=== PATIENT | male | born 1975 | race Caucasian/White ===

== ENCOUNTER → 2017-01-07 | Outpatient (CLI) | payer OTHER ==
[2017-01-07 16:31] VITALS: BP 171/92; PULSE 72; RESP 16; TEMP 97.5; BMI 48.1
[2017-01-07 17:29] LABS: EKG EKG PERFORMED
[2017-01-07 18:07] LABS: ALT 45 U/L (21-72); AST 33 U/L (17-59); Alkaline Phosphatase 68 U/L (38-126); Anion Gap 11 mmol/L; Blood Urea Nitrogen 19 mg/dL (9-20); Calcium 9.5 mg/dL (8.4-10.2); Carbon Dioxide 31 mmol/L (22-30); Chloride 97 mmol/L (98-107); Cholesterol 136 mg/dL (<200); Glucose 232 mg/dL (74-99); HDL Cholesterol 27 mg/dL (40-60); Non-African American GFR(MDRD) >60 (>60 ml/min/1.73 sqM); Potassium 4.3 mmol/L (3.5-5.1); Sodium 139 mmol/L (137-145); Total Bilirubin 0.7 mg/dL (0.2-1.3); Total Protein 7.3 g/dL (6.3-8.2)
[2017-01-07 18:15] LABS: Triglycerides 517 mg/dL (<150)
[2017-01-07 18:19] LABS: CHCM 34.2; HCT 37.9 % (39.0-53.0); HDW 3.65; HGB 12.9 gm/dL (13.0-17.5); MCH 26.8 pg (25.0-35.0); MCHC 33.9 g/dL (31.0-37.0); Mean Platelet Volume 6.8; Poikilocytosis Slight; RDW 15.3 % (11.5-15.5); WBC 5.9 k/uL (3.8-10.6)
[2017-01-07 18:22] LABS: Iron 84 ug/dL (49-181)
[2017-01-07 18:32] LABS: Total Iron Binding Capacity 371 ug/dL (261-462)
[2017-01-07 19:31] LABS: Vitamin B12 643 pg/mL (239-931)
[2017-01-07 22:18] LABS: Hemoglobin A1C 7.8 % (4.2-6.1)
--- NOTE | 2017-01-11 18:14 | P.PN ---
Progress Note - Text DATE OF CONSULTATION: 01/07/2017. CHIEF COMPLAINT: Initial bariatric assessment. HISTORY OF PRESENT ILLNESS: Jimbo Garcia is a 41-year-old gentleman who comes in at 6 foot 1 inch. His ideal body weight is 188 pounds. Today he comes in weighing 364 pounds. His highest weight was 369 pound. He has been undergoing medical supervised weight loss for over 6 to 7 months with minimal improvement of his weight. As a result of his weight he has developed insulin-dependent diabetes as well as obstructive sleep apnea, fatty liver disease as well as hypercholesterolemia. He also has fatty food intolerance and a strong family history of gallbladder disease. His current body mass index is 48.2. Now he presents for surgical intervention and options. PAST MEDICAL HISTORY: 1. Obstructive sleep apnea. 2. Morbid obesity. 3. Gastroesophageal reflux disease. 4. Insulin-dependent diabetes. 5. Hypertensive heart disease. PAST SURGICAL HISTORY: 1. Upper endoscopy. 2. Colonoscopy with polypectomy. 3. Sleep study. 4. Removal of bone spur of the right foot. MEDICATIONS: 1. Zantac. 2. Lantus. 3. Coreg. 4. Insulin Lispro. ALLERGIES: Denies. SOCIAL HISTORY: Former tobacco user. He is . No recent alcohol use. FAMILY HISTORY: Pertinent for diabetes including morbid obesity. REVIEW OF SYSTEMS: CONSTITUTIONAL: [place] body weight for a 6-foot, 1-frame of 188 pounds. Highest weight of 369 pounds. Highest present body mass index of 48.8. Recent weight loss of approximately 3 pounds. Medical supervised weight loss ongoing for at least 6 months. HEENT: No troubles with vision or hearing. He does wears glasses. No reports of dysphagia. ENDOCRINE: History of insulin-dependent diabetes. He has intolerance to metformin with diarrhea. Denies any thyroid disorder. CARDIOVASCULAR: Has hypertensive heart disease. No reports of recent chest pain or heart attack. RESPIRATORY: Has obstructive sleep apnea and has a CPAP machine. Denies any recent dyspnea on exertion. GASTROINTESTINAL: Gastroesophageal reflux disease including fatty food intolerance. He has a personal history of multiple tubular adenomas of the colon. Recent colonoscopy performed within the last six to twelve months. MUSCULOSKELETAL: Has diffuse osteoarthritis, especially of the bilateral knees and hips. NEUROLOGICAL: No reports of stroke or seizure disorders. PSYCH: No reports of depression or suicidal ideation. HEMATOLOGIC: Denies any previous DVTs or easy bruising or bleeding. PHYSICAL EXAM: VITAL SIGNS: 97.5, 72, 16, 171/92, 6 foot 1, 364 pounds. Body mass is a 48.2. GENERAL: Well-developed pleasant male in no acute distress. HEENT: No scleral icterus. Extraocular movements grossly intact. Moist buccal mucosa. Neck is supple without lymphadenopathy. CHEST: Nonlabored respirations. Equal bilateral excursions. CARDIOVASCULAR: Regular rate and rhythm. 2+ bilateral peripheral pulses. ABDOMEN: Soft, nondistended, tender along right upper quadrant. MUSCULOSKELETAL: No clubbing, cyanosis, or edema. NEURO: No focal or lateralizing signs. Cranial nerves II through XII grossly within normal limits. PSYCH: Appropriate affect. Alert and oriented to person, place, and time. LABS: White blood cell count normal at 5.9. Hemoglobin is low at 12.9. Hematocrit is also low at 37.9. MCV low at 79.0. Chloride was low at 97. Carbon dioxide was elevated at 31. Glucose elevated at 232. Hemoglobin A1c was elevated at 7.8. Liver enzymes were within normal limits. Triglycerides elevated at 517. Cholesterol was low at 136. HDL is low at 27. Thiamine is normal at 57. B12 normal at 643. Vitamin D is low at 8.1. Thyroid-stimulating hormone was within normal limits. EKG was obtained. ASSESSMENT: 1. Morbid obesity due to excess calories. 2. Body mass index of 48.2. 3. Obstructive sleep apnea. 4. Insulin-dependent diabetes type 2. 5. History of gallbladder disorder. 6. Family history of gallbladder disease. 7. History of anemia. 8. Personal history of colon polyps. 9. Hypertriglyceridemia. 10. Dyslipidemia. 11. Vitamin D deficiency. 12. Osteoarthritis of the bilateral hips primary secondary to obesity. 13. Osteoarthritis of the bilateral knees secondary to morbid obesity. PLAN: 1. At present he is mostly concerned about his gallbladder for which he is chronically nauseated. He has strong family history of gallbladder disease. Alternatives to a laparoscopic cholecystectomy with possible open technique was described and reviewed. 2. Recommend treatment of his vitamin D deficiency which is severe. 3. He has hypertriglyceridemia to be managed by his primary care provider. 4. Surgical options for bariatric procedures were reviewed, including between the band, sleeve and Candie-en-Y gastric bypass. With his history of active diabetes, he is looking into gastrectomy-type procedures. 5. He also has a personal history of gastroesophageal reflux disease as well as hiatal hernia which may need to be addressed at the time of this procedure. 6. Pending the results of his EKG, he may need additional cardiac risk assessment. 7. Recommend psych assessment per bariatric protocol. 8. With his history of previous tobacco use, will need a urine nicotine test. 9. Recommend continued medically supervised weight loss, particularly with high protein, low caloric diet, which will also benefit his diabetes. 10. Recommend close observation and management in the interim. Thank you for this kind consultation.
[2017-01-12 17:05] LABS: Anabasine Urine <2.0 ng/mL (<2.0)
== END | disposition home or self-care (01) ==
LOC: BARWHC3 14:27
PROVIDERS: ATTEND Surgery Plastic and Reconstructive Surgery
DX: Z01.818 Encounter for other preprocedural examination (principal); E66.01 Morbid (severe) obesity due to excess calories; Z68.42 Body mass index [BMI] 45.0-49.9, adult; E11.9 Type 2 diabetes mellitus without complications; Z79.4 Long term (current) use of insulin; E89.1 Postprocedural hypoinsulinemia; D50.8 Other iron deficiency anemias; E44.0 Moderate protein-calorie malnutrition; E55.9 Vitamin D deficiency, unspecified; Z79.899 Other long term (current) drug therapy; Z72.0 Tobacco use; G47.33 Obstructive sleep apnea (adult) (pediatric); E78.1 Pure hyperglyceridemia; E78.2 Mixed hyperlipidemia; M16.0 Bilateral primary osteoarthritis of hip; M17.0 Bilateral primary osteoarthritis of knee; I11.9 Hypertensive heart disease without heart failure
CPT/HCPCS: 84425; 80061; 80053; 82607; 82728; 83036; 82746; 83540; 83550; 84443; 85027; 82306; 93005; G0480; G0463; 80323; 99211

== ENCOUNTER 2017-02-02 06:25 | Day surgery (SDC) | payer OTHER ==
[2017-01-28 13:14] VITALS: BMI 47.5
[~2017-02-02 06:25] MED LIST: DEXAMETHASONE SOD PHOSPHATE 10 MG/ML 1 ML VIAL IV ONE; MIDAZOLAM 2 MG/2 ML VIAL IV PRN; ONDANSETRON 4 MG/2 ML VIAL IVP ONE; SCOPOLAMINE 1.5MG/72HR PATCH TRANSDERM ONE; ceFAZolin 3 GM in SODIUM CHLORIDE 0.9% 100 ML IVPB ONE
[2017-02-02] MEDS ORDERED: ACETAMINOPHEN IV (For NPO) 1,000 MG in EMPTY BAG 1 BAG IVPB STA (06:33)
[2017-02-02] MEDS ORDERED: HEPARIN SODIUM,PORCINE 5,000 UNIT/ML 1 ML VIAL SQ ONE (06:33)
--- NOTE | 2017-02-02 06:46 | P.GSHP ---
History of Present Illness H&P Date: 02/02/17 CHIEF COMPLAINT: Cholecystitis HISTORY OF PRESENT ILLNESS: The patient is a 41-year-old male who presents with history of epigastric including right upper quadrant abdominal pain. He underwent diagnostic studies for his gallbladder. Separately his clinical picture is consistent with cholecystitis. Now he presents for surgical intervention. PAST MEDICAL HISTORY: Please see list PAST SURGICAL HISTORY: Please see list MEDICATIONS: Please see list ALLERGIES: Denies. SOCIAL HISTORY: No illicit drug use or recent tobacco use FAMILY HISTORY: Pertinent for gallbladder disease REVIEW OF ORGAN SYSTEMS: GI: Findings are consistent with gastroesophageal reflux disease including diverticulosis and hyperplastic polyps. Has gastroesophageal reflux disease. CONSTITUTIONAL: No fevers or chills. HEENT: Denies any trouble with vision, hearing or nosebleeds. No difficulty swallowing. LYMPHATIC: The patient denies any lumps and bumps around the neck. ENDOCRINE: Denies any thyroid disorders. Has blood sugar glucose intolerance. RESPIRATORY: Denies pneumonia. Denies any troubles with breathing or dyspnea on exertion. Has sleep apnea. CARDIOVASCULAR: Denies any chest pain, palpitations, or recent heart attacks. GENITOURINARY: Denies any blood in urine or increased urinary frequency. MUSCULOSKELETAL: Has back pain, stiffness or joint arthritis. Has gout. NEUROLOGIC: Denies any numbness or tingling along the distal extremities. No seizure disorders or headaches. PSYCHIATRIC: Denies any depression or suicidal ideation. HEMATOLOGIC: Denies any abnormal bleeding or bruising. PHYSICAL EXAM: VITAL SIGNS: Afebrile vital signs stable GENERAL: Well-developed pleasant male in no acute distress. HEENT: No scleral icterus. Extraocular movements grossly intact. Moist buccal mucosa. NECK: Supple without lymphadenopathy. CHEST: Unlabored respirations. Equal bilateral excursions. CARDIOVASCULAR: Regular rate regular rhythm rhythm. Distal 2+ pulses. ABDOMEN: Soft, nondistended. Tender along the epigastrium and right upper quadrant. MUSCULOSKELETAL: No clubbing, cyanosis, or edema. NEURO :Moves all extremities 4+/5. PSYCH: Alert and oriented to person, place and time. ASSESSMENT: 1. Epigastric and right upper quadrant abdominal pain 2. Chronic cholecystitis PLAN: 1. Will need a robotic assisted laparoscopic cholecystectomy possible open. Benefits and risks were described. 2. Heparin for DVT prophylaxis 5000 units. 3. Antibiotic prophylaxis. Past Medical History Past Medical History: Diabetes Mellitus, Hyperlipidemia, Hypertension, Sleep Apnea/CPAP/BIPAP History of Any Multi-Drug Resistant Organisms: None Reported Past Surgical History: Orthopedic Surgery Additional Past Surgical History / Comment(s): great toe BONE, RT FOOT removed due to infection. COLONOSCOPY. EGD Past Anesthesia/Blood Transfusion Reactions: No Reported Reaction Past Psychological History: No Psychological Hx Reported Smoking Status: Former smoker Past Alcohol Use History: None Reported Additional Past Alcohol Use History / Comment(s): QUIT SMOKING 2006 Past Drug Use History: None Reported - Past Family History Mother Family Medical History: Cancer Father Family Medical History: Cancer Medications and Allergies Home Medications Medication Instructions Recorded Confirmed Type Insulin Glargine [Lantus] 100 unit SQ HS 01/07/17 01/28/17 History Carvedilol [Coreg] 25 mg PO BID 01/28/17 01/28/17 History Gemfibrozil [Lopid] 600 mg PO AC-BID 01/28/17 01/28/17 History Insulin Regular [HumuLIN R] 18 units SQ TID 01/28/17 01/28/17 History Ranitidine HCl [Zantac] 150 mg PO HS 02/02/17 02/02/17 History Allergies Allergy/AdvReac Type Severity Reaction Status Date / Time No Known Allergies Allergy Verified 02/02/17 06:40 Surgical - Exam Vital Signs Temp Pulse Resp BP Pulse Ox 97.5 F L 75 18 155/76 97 02/02/17 06:35 02/02/17 06:35 02/02/17 06:35 02/02/17 06:35 02/02/17 06:35
[2017-02-02 06:55] LABS: Glucose,Whole Blood 188 mg/dL (75-99)
[2017-02-02] MEDS: LACTATED RINGERS 1,000 ML IV SCH ×2 (07:00→07:26)
[2017-02-02] MEDS: LIDOCAINE 1% 20 ML VIAL (10MG/ML) FOR IV START INTRADERMA PRN ×2 (07:01→07:26)
[2017-02-02] MEDS ORDERED: GLYCOPYRROLATE 0.2 MG/ML 2 ML VIAL ONE (07:34)
[2017-02-02] MEDS ORDERED: MIDAZOLAM 2 MG/2 ML VIAL ONE (07:34)
[2017-02-02] MEDS ORDERED: PROPOFOL 10 MG/ML 20 ML VIAL IV ONE (07:34)
[2017-02-02] MEDS ORDERED: ROCURONIUM BROMIDE 10 MG/ML 10 ML VIAL IV ONE (07:34)
[2017-02-02] MEDS ORDERED: NEOSTIGMINE 1 MG/ML 10 ML VIAL ONE (07:34)
[2017-02-02] MEDS ORDERED: fentaNYL (PF) 50 MCG/ML 2 ML AMP ONE (07:34)
[2017-02-02] MEDS ORDERED: LIDOCAINE 1% INJ 10MG/ML (20 ML MDV) ONE (07:34)
[2017-02-02] MEDS ORDERED: SUCCINYLCHOLINE CHLORIDE VIAL 200 MG/10 ML VIAL IV ONE (07:34)
[2017-02-02] MEDS ORDERED: LABETALOL 5 MG/ML VIAL MDV ONE (07:34)
[2017-02-02] MEDS ORDERED: BUPIVACAIN-EPI 0.25%-1:200,000 30 ML VIAL SQ ONE ×2 (08:07)
--- NOTE | 2017-02-02 09:43 | P.PCN ---
Preoperative Diagnosis: Chronic cholecystitis Postoperative Diagnosis: Same Procedure(s) Performed: Robotic-assisted laparoscopic cholecystectomy, multiport Anesthesia: GETA, local Surgeon: Cydney Barfield Estimated Blood Loss (ml): 10 Pathology: other (Gallbladder) Condition: stable Disposition: same day Operative Findings: Omental adhesions about the entire gallbladder consistent with chronic cholecystitis, hepatomegaly, fatty liver disease adding complexity of case by 30 minutes Description of Procedure: See full dictated report
[2017-02-02 10:05] VITALS: TEMP 97
[2017-02-02] MEDS: HYDROmorphone 1 MG/ML 1 ML SYRINGE IVP PRN ×2 (10:25→10:40)
[2017-02-02] MEDS ORDERED: HYDROcodone/APAP 5-325MG 1 EACH TAB PO PRN (10:27)
[2017-02-02] MEDS ORDERED: NALOXONE 0.4 MG/ML 1 ML VIAL IV PRN (10:27)
[2017-02-02] MEDS ORDERED: ONDANSETRON 4 MG/2 ML VIAL IVP PRN (10:27)
[2017-02-02 11:02] VITALS: RESP 18
[2017-02-02 11:05] LABS: Glucose,Whole Blood 276 mg/dL (75-99)
[2017-02-02] MEDS ORDERED: INSULIN LISPRO (humaLOG) 300 UNIT/3 ML VIAL SQ ONE (11:06)
[2017-02-02] MEDS ORDERED: ONDANSETRON 4 MG/2 ML VIAL IVP ONE (11:22)
[2017-02-02] MEDS ORDERED: HYDROcodone/APAP 5-325MG 1 EACH TAB PO ONE (12:05)
[2017-02-02 13:35] VITALS: BP 138/92; PULSE 78
--- NOTE | 2017-02-23 12:10 | P.OP ---
Date of Procedure: 02/02/17 Description of Procedure: SURGEON: DAVID BARFIELD MD BIOCHEMISTRY TECHNOLOGIST: Shama Maharaj PREOPERATIVE DIAGNOSES: 1. Chronic cholecystitis. 2. Family history of gallbladder disease. 3. Morbid obesity due to excess calories. 4. Body mass index 29.4. 5. Insulin-dependent type 2 diabetes, uncontrolled. 6. Hypertensive heart disease. 7. Hypercholesterolemia. 8. Hypertriglyceridemia. 9. Obstructive sleep apnea. POSTOPERATIVE DIAGNOSES: 1. Chronic cholecystitis. 2. Family history of gallbladder disease. 3. Morbid obesity due to excess calories. 4. Body mass index 29.4. 5. Insulin-dependent type 2 diabetes, uncontrolled. 6. Hypertensive heart disease. 7. Hypercholesterolemia. 8. Hypertriglyceridemia. 9. Obstructive sleep apnea. 10. Fatty liver disease. 11. Hepato-megaly. OPERATION: Robotic-assisted laparoscopic cholecystectomy, multiport ESTIMATED BLOOD LOSS: 10 mL. SPECIMENS REMOVED: Gallbladder. COMPLICATIONS: None. OPERATIVE FINDINGS: 1. Omental adhesions about the entire gallbladder consistent with chronic cholecystitis 2. Hepatomegaly from fatty liver disease adding complexity to the case by 30 minutes INDICATIONS: The patient is a 42-year-old male who presents with chronic cholelcystitis. Surgical intervention with a laparoscopic cholecystectomy was described at length including injury to the biliary tree, bleeding, infection, need for further surgery. Informed consent was obtained. Robotic assisted laparoscopic approach was selected with his risks for hepatomegaly secondary to fatty liver disease including morbid obesity. Benefits and risks of the procedure including but not limited to bleeding, infection, injury to the biliary tree, injury to small bowel including placement of mesh repair was described. Informed consent was obtained. DESCRIPTION OF PROCEDURE: Patient was brought to the operating room, placed in supine position. After general induction, the abdomen had been prepped and draped in standard sterile fashion. The robotic da Gio SI system was primed. After a timeout protocol was performed, the patient had been prepped and draped in standard sterile fashion and placement. The robot was docked along the right lateral abdomen. The patient was repositioned in Trendelenburg position. Please note prior to docking of the robot; however, a 5 mm 0 degrees laparoscopic trocar entry was performed along the epigastrium. Next, 8 mm robotic port was placed along the right upper abdomen. A separate 8 mm port was placed along the left lateral abdomen. The camera port was maintained along the epigastrium upper quadrant. Another 8 mm port was placed along the right lateral abdominal wall. Please note that the ports were placed at least 10 to 15 cm away from the target anatomy of the lower pelvis. An logging assistant 5-mm port was placed along the left upper lateral abdominal wall. Using a grasper for arm 3, a long dissecting grasper for arm 2, including a grasper with cautery for arm 1, the robotic system was appropriately docked and primed as described. Instruments were interchanged by the logging assistant including hook cautery, Bovie cautery scissors and clip appliers. I had sat at the console. Adhesions were identified along the infundibulum of the gallbladder. A robot LigaSure was used to divide the adhesions. The gallbladder fundus was retracted over the dome of the liver. Initial attention was brought to the infundibulum which was gently retracted in the inferior lateral approach. Using a long grasper, the cystic duct including the cystic artery was carefully skeletonized. Using a clip aviation program manager 2 clips were placed proximally, and 2 clip was placed distally along the cystic duct and then cut with scissors. Again care was taken to avoid any injury to the biliary tree as the common bile duct was clearly visualized during this portion of dissection. Next, the cystic artery was clipped twice proximally, once distally and then cauterized the cut. Electro-Bovie cautery was used to remove the gallbladder from the hepatic fossa without decompression of the gallbladder. Hemostasis was checked and found to be adequate. I re-scrubbed into the case. Using a 10 mm Endo Catch bag via the 12 mm port, the specimen was removed from the abdominal cavity. The 12 mm port site was oversewn using 0 Vicryl including a Mu Romo as well. All pneumoperitoneum instruments were evacuated from the abdominal cavity. The incisions were reapproximated using 4-0 Monocryl in an interrupted subcuticular fashion. Please note along the trocar sites, local anesthetic was placed as a field block prior to insertion of all instruments. Dermabond was applied to the skin. At the end of the procedure needle, sponge, and instrument count had been verified correct by the surgical services asst. The patient was transferred to postanesthesia care unit in stable condition. Plan - Discharge Summary New Discharge Prescriptions: Hydrocodone/Acetaminophen [[place] 5-325] 1 - 2 each PO Q6HR PRN #30 tab PRN Reason: Pain Discharge Medication List Insulin Glargine [Lantus] 100 unit SQ HS 01/07/17 [History] Carvedilol [Coreg] 25 mg PO BID 01/28/17 [History] Gemfibrozil [Lopid] 600 mg PO AC-BID 01/28/17 [History] Insulin Regular [HumuLIN R] 18 units SQ TID 01/28/17 [History] Hydrocodone/Acetaminophen [[place] 5-325] 1 - 2 each PO Q6HR PRN #30 tab 02/02/17 [Rx] Ranitidine HCl [Zantac] 150 mg PO HS 02/02/17 [History] Ergocalciferol [Vitamin D2 (DRISDOL)] 50,000 unit PO Q7D #12 cap 02/05/17 [Rx] Follow up Appointment(s)/Referral(s): David Barfield MD [STAFF PHYSICIAN] - 02/05/17 10:30 am ([facility] Center) Patient Instructions/Handouts: *Surgery [facility] - (Anesthesia) Discharge Instructions Outpatient Surgery, Low Fat Diet (DC), Laparoscopic Cholecystectomy (DC) Activity/Diet/Wound Care/Special Instructions: No lifting over 4 pounds in 2 weeks. May shower tomorrow. Low-fat diet for the next 48 hours. Discharge Disposition: HOME SELF-CARE
== END 2017-02-02 13:53 | disposition home or self-care (01) ==
LOC: OR 06:25
PROVIDERS: ATTEND Surgery Plastic and Reconstructive Surgery
DX: K81.1 Chronic cholecystitis (principal); K21.9 Gastro-esophageal reflux disease without esophagitis; Z79.4 Long term (current) use of insulin; Z79.899 Other long term (current) drug therapy; I10 Essential (primary) hypertension; E78.5 Hyperlipidemia, unspecified; G47.33 Obstructive sleep apnea (adult) (pediatric); Z99.89 Dependence on other enabling machines and devices; E66.01 Morbid (severe) obesity due to excess calories; Z68.42 Body mass index [BMI] 45.0-49.9, adult
CPT/HCPCS: 47562; S2900; 88304

== ENCOUNTER → 2017-02-05 | Outpatient (CLI) | payer OTHER ==
--- NOTE | 2017-02-05 11:27 | P.PN ---
Progress Note - Text To whom it may concern: Jimbo Garcia is under my surgical care. He may return to work without restrictions on February 16, 2017. Sincerely, Cydney Barfield MD, FACS, FICS, Dip [facility]OM Director of [facility]
[2017-02-05 11:32] VITALS: BP 139/92; PULSE 56; RESP 18; TEMP 98.3; BMI 49.8
--- NOTE | 2017-03-11 01:31 | P.PN ---
Progress Note - Text DATE OF SERVICE: 02/05/2017 CHIEF COMPLAINT: Bariatric assessment. HISTORY OF PRESENT ILLNESS: Jimbo Garcia is a 42-year-old gentleman who is now status post cholecystectomy approximately less than 3 days ago. Separately, he initially presented to the [facility] one month ago. At his height of 5 feet 11 inches, his ideal body weight is 178 pounds. He comes in with weight loss down 362 pounds. His highest weight was 369 pounds. Body mass index has been reduced was 50.9 down to 49.9. He has lost 2 pounds in one month. He reports trying foods such as chicken and dumplings with some nausea. He denies any further diarrhea. He now presents for further evaluation and management. PHYSICAL EXAM: VITAL SIGNS: 98.3, 56, 18, 139/92; 5 feet 11-1/2 inches, 362 pounds. Body mass index 49.9. ABDOMEN: All trocar sites clean, dry, and intact, however, without signs of infection. GENERAL: Well-developed pleasant male in no acute distress. HEENT: No scleral icterus. Extraocular movements grossly intact. Moist buccal mucosa. Neck is supple without lymphadenopathy. CHEST: Nonlabored respirations. Equal bilateral excursions. CARDIOVASCULAR: Regular rate and rhythm. 2+ bilateral peripheral pulses. MUSCULOSKELETAL: No clubbing, cyanosis, or edema. NEURO: No focal or lateralizing signs. Cranial nerves II through XII grossly within normal limits. PSYCH: Appropriate affect. Alert and oriented to person, place, and time. Pathology report was consistent with chronic active cholecystitis. LABS: Bariatric metabolic panel was reviewed demonstrating hemoglobin low at 12.9. Chloride was low at 97, bicarb was elevated at 31. Glucose was high at 232. Hemoglobin A1c was elevated at 7.8. Triglycerides were high at 517. HDL was low at 27. Vitamin D was low at 8.1. Urine culture was negative. ASSESSMENT: 1. Morbid obesity due to excess calories. 2. Body mass index reduced from 50.9 down to 49.9. 3. Status post cholecystectomy. 4. Hypertriglyceridemia. 5. Severe vitamin D deficiency. 6. History of chronic active cholecystitis. 7. Dietary surveillance and counseling. PLAN: 1. He has already lost weight especially after his gallbladder whereby now he is eating more fresh fruits and vegetables. 2. Recommend vitamin D supplementation minimal 50,000 units daily. 3. Recommend continued dietary surveillance and counseling per insurance guidelines on a monthly basis.
== END | disposition home or self-care (01) ==
LOC: BARWHC3 10:05
PROVIDERS: ATTEND Surgery Plastic and Reconstructive Surgery
DX: E66.01 Morbid (severe) obesity due to excess calories (principal); Z68.42 Body mass index [BMI] 45.0-49.9, adult; Z98.890 Other specified postprocedural states; E78.1 Pure hyperglyceridemia; E55.9 Vitamin D deficiency, unspecified; K81.1 Chronic cholecystitis
CPT/HCPCS: 99211

== ENCOUNTER → 2017-05-13 | Outpatient (CLI) | payer OTHER ==
[2017-05-13 14:10] VITALS: BP 145/79; PULSE 76; RESP 16; TEMP 98.1; BMI 50.6
--- NOTE | 2017-06-02 17:15 | P.PN ---
Progress Note - Text DATE OF CONSULTATION: 05/13/2017. CHIEF COMPLAINT: Bariatric assessment. HISTORY OF PRESENT ILLNESS: Jimbo Garcia is a 42-year-old gentleman who comes in at 5 foot 11 inch. His ideal body weight is 178 pounds. Today he comes in weighing 368 pounds. His highest weight was 369 pound. He is 190 pounds overweight. His body mass index is 50.7. He has been undergoing medical supervised weight loss for over 1 year with minimal improvement of his weight. As a result of his weight he has developed insulin-dependent diabetes as well as obstructive sleep apnea, fatty liver disease as well as hypercholesterolemia. Since his gallbladder surgery, he reports improvement of his epigastric abdominal pain. He still reports heartburn. At present, he is evaluating for sleeve gastrectomy. He's pending psych assessment. He reports new intermittent chest pain. Now presents for further evaluation and management. PAST MEDICAL HISTORY: 1. Obstructive sleep apnea. 2. Morbid obesity. 3. Gastroesophageal reflux disease. 4. Insulin-dependent diabetes. 5. Hypertensive heart disease. PAST SURGICAL HISTORY: 1. Upper endoscopy. 2. Colonoscopy with polypectomy. 3. Sleep study. 4. Removal of bone spur of the right foot. 5. Laparoscopic cholecystectomy. MEDICATIONS: 1. Zantac. 2. Lantus. 3. Coreg. 4. Insulin Lispro. ALLERGIES: Denies. SOCIAL HISTORY: Former tobacco user. He is . No recent alcohol use. FAMILY HISTORY: Pertinent for diabetes including morbid obesity. REVIEW OF SYSTEMS: CONSTITUTIONAL: His ideal body weight is 178 pounds. Today he comes in weighing 368 pounds. His highest weight was 369 pound. He is 190 pounds overweight. His body mass index is 50.7. HEENT: No troubles with vision or hearing. He does wears glasses. No reports of dysphagia. ENDOCRINE: History of insulin-dependent diabetes. He has intolerance to metformin with diarrhea. Denies any thyroid disorder. CARDIOVASCULAR: Has hypertensive heart disease. No reports of recent chest pain or heart attack. RESPIRATORY: Has obstructive sleep apnea and has a CPAP machine. Denies any recent dyspnea on exertion. GASTROINTESTINAL: Gastroesophageal reflux disease including fatty food intolerance now improved. He has a personal history of multiple tubular adenomas of the colon. MUSCULOSKELETAL: Has diffuse osteoarthritis, especially of the bilateral knees and hips. NEUROLOGICAL: No reports of stroke or seizure disorders. PSYCH: No reports of depression or suicidal ideation. HEMATOLOGIC: Denies any previous DVTs or easy bruising or bleeding. PHYSICAL EXAM: VITAL SIGNS: 5 foot 11, 368 pounds. Body mass is 50.7. Vital Signs Temp 98.1 F 05/13/17 13:44 Pulse 76 05/13/17 13:44 Resp 16 05/13/17 13:44 BP 145/79 05/13/17 13:44 Pulse Ox GENERAL: Well-developed pleasant male in no acute distress. HEENT: No scleral icterus. Extraocular movements grossly intact. Moist buccal mucosa. Neck is supple without lymphadenopathy. CHEST: Nonlabored respirations. Equal bilateral excursions. CARDIOVASCULAR: Regular rate and rhythm. 2+ bilateral peripheral pulses. ABDOMEN: Soft, nondistended, nontender. MUSCULOSKELETAL: No clubbing, cyanosis, or edema. NEURO: No focal or lateralizing signs. Cranial nerves II through XII grossly within normal limits. PSYCH: Appropriate affect. Alert and oriented to person, place, and time. LABS: Hemoglobin A1c was elevated at 7.8. Triglycerides elevated at 517. Vitamin D is low at 8.1. ASSESSMENT: 1. Morbid obesity due to excess calories. 2. Body mass index of 50.7. 3. Obstructive sleep apnea. 4. Insulin-dependent diabetes type 2. 5. History of gallbladder disorder. 6. Family history of gallbladder disease. 7. History of anemia. 8. Personal history of colon polyps. 9. Hypertriglyceridemia. 10. Dyslipidemia. 11. Vitamin D deficiency. 12. Osteoarthritis of the bilateral hips primary secondary to obesity. 13. Osteoarthritis of the bilateral knees secondary to morbid obesity. 14. Hypertensive heart disease. PLAN: 1. Despite medical supervised weight loss, he still has troubles with weight loss. 5% weight loss goal down to 350 pounds was described. 2. He has history of chest pain including hypertension. Recommend cardiac risk assessment. 3. He is evaluating for sleeve gastrectomy. Benefits and risks of surgical intervention were reviewed including potential risk of increased reflux disease. 4. [place] bariatric laboratory data was also reviewed including risks of her band, sleeve, gastric bypass. 5. Recommend continued dietary surveillance and counseling per insurance guidelines. 6. Psych assessment per insurance guidelines. 7. He has completed her medical risk assessment for his recent cholecystectomy in January 2017. 8. For his insurance concerns, insurance administrative assistant also provided additional information regarding his requirements prior to bariatric surgery.
== END | disposition home or self-care (01) ==
LOC: BARWHC3 13:14
PROVIDERS: ATTEND Surgery Plastic and Reconstructive Surgery
DX: Z01.818 Encounter for other preprocedural examination (principal); E66.01 Morbid (severe) obesity due to excess calories; G47.33 Obstructive sleep apnea (adult) (pediatric); E11.9 Type 2 diabetes mellitus without complications; E78.1 Pure hyperglyceridemia; E78.5 Hyperlipidemia, unspecified; E55.9 Vitamin D deficiency, unspecified; M16.0 Bilateral primary osteoarthritis of hip; M17.0 Bilateral primary osteoarthritis of knee; I11.9 Hypertensive heart disease without heart failure; K21.9 Gastro-esophageal reflux disease without esophagitis; Z68.43 Body mass index [BMI] 50.0-59.9, adult; Z79.02 Long term (current) use of antithrombotics/antiplatelets; Z79.4 Long term (current) use of insulin; Z79.899 Other long term (current) drug therapy
CPT/HCPCS: 99211